=== PATIENT | female | born 1935 | race Caucasian/White ===

== ENCOUNTER 2016-12-01 12:43 | Outpatient (CLI) ==
--- NOTE | 2016-12-01 13:42 | US ---
EXAM: ULTRASOUND CAROTID DUPLEX, BILATERAL HISTORY: Dizziness FINDINGS: Baumann-scale ultrasound, color Doppler and spectral analysis was performed. Velocities are in meters per second. By baumann scale and color Doppler imaging, there were regions of heterogeneous plaque formation identi fied within the carotid bulbs and internal carotid arteries. These regions of plaque appeared to re main less than 50% vessel diameter. RIGHT: External carotid artery peak systolic velocity: 1.6 Common carotid artery peak systolic velocity/end diastolic velocity: 0.9/0.2 Internal carotid artery peak systolic velocity: 0.8 ICA/CCA peak systolic velocity ratio: 0.9 ICA end diastolic velocity: 0.1 LEFT: External carotid artery peak systolic velocity: 1.2 Common carotid artery peak systolic velocity/end diastolic velocity: 0.6/0.1 Internal carotid artery peak systolic velocity: 0.7 ICA/CCA peak systolic velocity ratio: 1.2 ICA end diastolic velocity: 0.1 The right and left vertebral arteries were antegrade. IMPRESSION: 1. By baumann scale and color Doppler imaging, there were regions of heterogeneous plaque formation id entified within the carotid bulbs and internal carotid arteries. These regions of plaque appeared t o remain less than 50% vessel diameter. 2. Internal carotid artery peak systolic velocities and ICA/CCA peak systolic velocity ratios indic ate no hemodynamically significant stenosis bilaterally. 3. Both vertebral arteries were antegrade.
== END 2016-12-01 12:44 | disposition home or self-care (01) ==
LOC: RAD 12:43
PROVIDERS: ATTEND Internal Medicine
DX: R42 Dizziness and giddiness (principal)

== ENCOUNTER 2017-09-27 16:03 | Inpatient (IN) | payer OTHER ==
[2017-09-27] MEDS ORDERED: NITROSTAT SL PRN (16:28)
[2017-09-27] MEDS ORDERED: ATROPINE SULFATE PFS IVP PRN (16:28)
[2017-09-27] MEDS ORDERED: VISTARIL INJ IM PRN (16:28)
[2017-09-27] MEDS ORDERED: TYLENOL PO PRN (16:28)
[2017-09-27] MEDS ORDERED: MORPHINE 4 MG/ML VIAL IVP PRN (16:28)
[2017-09-27] MEDS ORDERED: PHENERGAN WITH CODEINE 6.25/10 MG/5 ML PO PRN (16:35)
--- NOTE | 2017-09-27 17:02 | DI ---
EXAM: Chest two views HISTORY: Cough COMPARISON: 04/26/2016 TECHNIQUE: Two views of the chest were performed FINDINGS: No airspace consolidation. Minimal subsegmental atelectasis and/or scarring in the lingul a. Granulomatous calcification. There is no pleural effusion or pneumothorax. The heart is normal i n size. The mediastinal contour is normal, noting atherosclerosis. There are no acute abnormalities of the bones. IMPRESSION: No acute cardiopulmonary process.
[2017-09-27 17:10] VITALS: BMI 25.8
[2017-09-27] MEDS ORDERED: NORCO 5-325 PO PRN (17:34)
[2017-09-27] MEDS: DEXTROSE 5%-1/2NS IV SOLUTION 1,000 ML IV SCH (17:59)
[2017-09-27] MEDS: ROCEPHIN 1 GM in SODIUM CHLORIDE 50 ML IV SCH (18:04)
[2017-09-27] MEDS: SOLU-MEDROL 125 MG IVP SCH ×2 (18:04→20:46)
[2017-09-27] MEDS: ZITHROMAX PO SCH (18:20)
[2017-09-27] MEDS: XOPENEX 1.25 MG NEB SCH ×2 (18:22→23:26)
[2017-09-27] MEDS: XANAX PO PRN (20:46)
[2017-09-28] MEDS: XOPENEX 1.25 MG NEB SCH ×4 (04:59→23:08)
[2017-09-28] MEDS: DEXTROSE 5%-1/2NS IV SOLUTION 1,000 ML IV SCH ×2 (07:48→08:57)
[2017-09-28] MEDS ORDERED: ASPIRIN EC PO SCH (08:00)
[2017-09-28] MEDS: ROCEPHIN 1 GM in SODIUM CHLORIDE 50 ML IV SCH (08:58)
[2017-09-28] MEDS ORDERED: NON-FORMULARY MEDICATION (Losartan Potassium 50 MG) PO SCH (09:00)
[2017-09-28] MEDS: CELEXA PO SCH (09:00)
[2017-09-28] MEDS ORDERED: NON-FORMULARY MEDICATION (Lovastatin [Lovastatin] 40 MG) PO SCH (09:00)
[2017-09-28] MEDS: MEVACOR PO SCH (09:00)
[2017-09-28] MEDS ORDERED: NON-FORMULARY MEDICATION (Esomeprazole Magnesium [Nexium] 40 MG) PO SCH (09:00)
[2017-09-28] MEDS: PROTONIX PO SCH (09:00)
[2017-09-28] MEDS: COZAAR PO SCH (09:00)
[2017-09-28] MEDS: ASPIRIN EC PO SCH (09:01)
[2017-09-28] MEDS: ZITHROMAX PO SCH (09:01)
[2017-09-28] MEDS: BETAPACE PO SCH (09:01)
[2017-09-28] MEDS: SOLU-MEDROL 125 MG IVP SCH ×2 (09:45→21:14)
--- NOTE | 2017-09-28 10:08 | PCM.PROG ---
Attending Provider: ATTENDING PROVIDER: Dr. XENIA ZHAO This patient is seen with Emily Ferguson, Nurse Practitioner. DATE OF SERVICE: 09/28/17 SUBJECTIVE: This 82 year old WHITE/ F was hospitalized 09/27/17. The patient is lying in bed, alert. Cough slightly improved. She did have some confusion through the night. She had a recent fall one week ago, hit head and left hip. The left hip CT was normal however head was not scanned. She has been having confusion. REVIEW OF SYSTEMS: CONSTITUTIONAL: Weakness. No night sweats. No fever or chills. HEENT: Eyes: No visual changes. No eye pain. No eye discharge. ENT: No runny nose. No epistaxis. No sinus pain. No odynophagia. No congestion. RESPIRATORY: Cough. No congestion. No hemoptysis. No shortness of breath. CARDIOVASCULAR: No angina symptoms. No CHF symptoms. No atypical chest pain for CAD. No palpitations. No orthopnea.. GASTROINTESTINAL: No abdominal pain. No nausea or vomiting. No diarrhea or constipation. No hematemesis. No hematochezia. GENITOURINARY: No urgency. No frequency. No dysuria. No hematuria. No obstructive symptoms. No discharge. No pain. No significant abnormal bleeding. MUSCULOSKELETAL: No musculoskeletal pain; no joint swelling. NEUROLOGICAL: Awake, alert, oriented with bouts of confusion. No headache. No neck pain. No syncope. No seizures. No dizziness. PSYCHIATRIC: Not anxious. No depression. No suicidal thoughts. No homicidal thoughts. SKIN: No rash. No lesions. No wounds. ENDOCRINE: No unexplained weight loss. No weight gain. HEMATOLOGIC/LYMPHATIC: No anemia. No purpura. No petechiae. No prolonged or excessive bleeding. No palpable lymph nodes. PHYSICAL EXAMINATION: GENERAL: The patient is awake, alert and oriented, lying in bed in no distress. VITAL SIGNS: Temperature 97.8 F, Pulse 78, Respiratory Rate 16, BP 141/75, Pulse Ox 94% HEENT: Head normocephalic, atraumatic. Eyes: Extraocular muscles are intact. Pupils are equal, round and reactive to light and accommodation. Ears: No lesions. Nose appeared normal. Throat: No exudate or erythema. NECK: Supple. No JVD, no carotid bruit. No lymphadenopathy or thyromegaly. LUNGS: Diminished breath sounds bilaterally. Clear to auscultation. Percussion note normal. Chest symmetrical. HEART: S1, S2, no S3. No murmurs. No cyanosis or clubbing. No ascites. Pulses: Dorsalis pedis and posterior tibial pulses +1 to +2 both sides. ABDOMEN: Soft. Non-tender. Bowel sounds active. No CVA tenderness. No mass felt. EXTREMITIES: No edema. Full range of motion of all extremities, equal. NEUROLOGIC: No focal deficit. Cranial nerves II through XII are grossly intact. No headache, no double vision or headache. SKIN: Not dry. Intact. Turgor-normal. LYMPHATIC: No palpable lymph nodes/no lymphedema. MUSCULOSKELETAL: Normal joints with no swelling. Muscle tone is normal. LAB REVIEW: 09/28/17 04:24 09/28/17 04:24 09/28/17 04:24: Sodium 133 L, Potassium 4.5, Chloride 103, Carbon Dioxide 25, Anion Gap 9.5, BUN 21 H, Creatinine 1.00 D, Estimated GFR (MDRD) 53.00, BUN/ Creatinine Ratio 21.00, Glucose 179 H D, Calcium 9.4, Total Bilirubin 0.3, AST 21, ALT 15, Alkaline Phosphatase 46 L, Total Protein 6.9, Albumin 3.0 L, Globulin 3.9, Albumin/Globulin Ratio 0.77 09/28/17 04:24: WBC 10.07, RBC 3.85 L, Hgb 12.1, Hct 36.4 L, MCV 94.5, MCH 31.4 H, MCHC 33.2, RDW Coeff of Song 13.2, Plt Count 230, Immature Gran % (Auto) 1.6, Neut % (Auto) 85.5, Lymph % (Auto) 11.2, [place] % (Auto) 1.6, Eos % (Auto) 0.0, Baso % (Auto) 0.1, Immature Gran # (Auto) 0.2, Neut # 8.6 H, Lymph # 1.1, [place] # 0.2 L, Eos # 0.0, Baso # 0.0 09/27/17 18:20: Urine Color Yellow, Urine Clarity Clear, Urine pH 6.0, Ur Specific Summers 1.015, Urine Protein Negative, Urine Glucose (UA) Negative, Urine Ketones Trace, Urine Blood Negative, Urine Nitrite Negative, Urine Bilirubin Negative, Urine Urobilinogen 0.2, Ur Leukocyte Esterase Negative 09/27/17 17:45: Influenza A (Rapid) Negative by naat, Influenza B (Rapid) Negative by naat 09/27/17 17:00: Sodium 135 L, Potassium 4.8, Chloride 99, Carbon Dioxide 29, Anion Gap 11.8, BUN 28 H, Creatinine 1.73 H, Estimated GFR (MDRD) 28.00, BUN/ Creatinine Ratio 16.18, Glucose 119 H, Calcium 9.7, Total Bilirubin 0.4, AST 22 , ALT 15, Alkaline Phosphatase 49 L, Total Protein 6.8, Albumin 3.1 L, Globulin 3.7, Albumin/Globulin Ratio 0.84 09/27/17 17:00: WBC 11.87 H, RBC 3.96 L, Hgb 12.4, Hct 37.8, MCV 95.5, MCH 31.3 H, MCHC 32.8, RDW Coeff of Song 13.2, Plt Count 239, Immature Gran % (Auto) 0.9, Neut % (Auto) 63.2, Lymph % (Auto) 18.4, [place] % (Auto) 15.3 H, Eos % (Auto) 2.0 , Baso % (Auto) 0.2, Immature Gran # (Auto) 0.1, Neut # 7.5 H, Lymph # 2.2, [place] # 1.8, Eos # 0.2, Baso # 0.0 ASSESSMENT: 1. Acute pneumonitis 2. Generalized weakness 3. Status post fall 4. Intermittent confusion PLAN: 1. CT scan of brain, without 2. Decrease IV fluids to 50 mL/hr Plan and coordination of the patient's care discussed in the presence of Distance Learning Administrator and nurse. CONDITION: Stable SCRIBED BY: CANDIDA ARREOLA Sales And Service Consultant scribed while in presence of service performed by Dr. Zhao/Emily Ferguson APRN on 09/28/17 ([id number])
--- NOTE | 2017-09-28 12:33 | CT ---
EXAM: CT BRAIN HISTORY: Fall, hit head TECHNIQUE: CT brain without intravenous contrast. 5-mm axial sections with Reformations. COMPARISON: None FINDINGS: There is age-related generalized atrophy. There is moderate periventricular and deep white matter low attenuation which although nonspecific is suggestive of chronic microvascular ischemic change. Athe rosclerotic disease. Brain otherwise is unremarkable without distinct evidence of hemorrhage or large vessel distribution recent ischemic infarction. There is no suggestion of acute hydrocephalus or subdural fluid collecti on. No mass or mass effect. Cranium is intact. The visualized paranasal sinuses are clear. There is sclerosis and poor aeration of the left mastoid process possibly from previous bouts of inflammation/infection. No definite cur rent effusion. IMPRESSION: No acute injuries or intracranial process.2
[2017-09-28] MEDS: XANAX PO PRN (21:14)
[2017-09-29] MEDS: DEXTROSE 5%-1/2NS IV SOLUTION 1,000 ML IV SCH ×2 (02:19→06:19)
[2017-09-29] MEDS: XOPENEX 1.25 MG NEB SCH ×3 (04:03→23:47)
[2017-09-29] MEDS: PROTONIX PO SCH (05:43)
[2017-09-29] MEDS: BETAPACE PO SCH (08:55)
[2017-09-29] MEDS: COZAAR PO SCH (08:55)
[2017-09-29] MEDS: CELEXA PO SCH (08:55)
[2017-09-29] MEDS: ROCEPHIN 1 GM in SODIUM CHLORIDE 50 ML IV SCH (08:55)
[2017-09-29] MEDS: MEVACOR PO SCH (08:56)
[2017-09-29] MEDS: ASPIRIN EC PO SCH (08:56)
[2017-09-29] MEDS: ZITHROMAX PO SCH (08:56)
[2017-09-29] MEDS: PREDNISONE PO SCH ×2 (10:11→20:38)
--- NOTE | 2017-09-29 10:58 | PCM.PROG ---
Attending Provider: ATTENDING PROVIDER: Dr. XENIA ZHAO This patient is seen with Emily Ferguson, Nurse Practitioner. DATE OF SERVICE: 09/29/17 SUBJECTIVE: This 82 year old WHITE/ F was hospitalized 09/27/17. The patient is lying in bed, alert. She is feeling better today. She has been eating well. REVIEW OF SYSTEMS: CONSTITUTIONAL: Positive for weakness and fatigue. No night sweats. No fever or chills. HEENT: Eyes: No visual changes. No eye pain. No eye discharge. ENT: No runny nose. No epistaxis. No sinus pain. No odynophagia. No congestion. RESPIRATORY: No cough, no congestion. No hemoptysis. No shortness of breath. CARDIOVASCULAR: No angina symptoms. No CHF symptoms. No atypical chest pain for CAD. No palpitations. No orthopnea.. GASTROINTESTINAL: No abdominal pain. No nausea or vomiting. No diarrhea or constipation. No hematemesis. No hematochezia. GENITOURINARY: No urgency. No frequency. No dysuria. No hematuria. No obstructive symptoms. No discharge. No pain. No significant abnormal bleeding. MUSCULOSKELETAL: No musculoskeletal pain; no joint swelling. NEUROLOGICAL: Awake, alert, oriented to time, place and person. No headache. No neck pain. No syncope. No seizures. No dizziness. PSYCHIATRIC: Not anxious. No depression. No suicidal thoughts. No homicidal thoughts. SKIN: No rash. No lesions. No wounds. ENDOCRINE: No unexplained weight loss. No weight gain. HEMATOLOGIC/LYMPHATIC: No anemia. No purpura. No petechiae. No prolonged or excessive bleeding. No palpable lymph nodes. PHYSICAL EXAMINATION: GENERAL: The patient is awake, alert and oriented, lying in bed in no distress. VITAL SIGNS: Temperature 98.2 F, Pulse 66, Respiratory Rate 16, BP 141/71, Pulse Ox 96% HEENT: Head normocephalic, atraumatic. Eyes: Extraocular muscles are intact. Pupils are equal, round and reactive to light and accommodation. Ears: No lesions. Nose appeared normal. Throat: No exudate or erythema. NECK: Supple. No JVD, no carotid bruit. No lymphadenopathy or thyromegaly. LUNGS: Diminished breath sounds bilaterally. Clear to auscultation. Percussion note normal. Chest symmetrical. HEART: S1, S2, no S3. No murmurs. No cyanosis or clubbing. No ascites. Pulses: Dorsalis pedis and posterior tibial pulses +1 to +2 both sides. ABDOMEN: Soft. Non-tender. Bowel sounds active. No CVA tenderness. No mass felt. EXTREMITIES: No edema. Full range of motion of all extremities, equal. NEUROLOGIC: No focal deficit. Cranial nerves II through XII are grossly intact. No headache, no double vision or headache. SKIN: Not dry. Intact. Turgor-normal. LYMPHATIC: No palpable lymph nodes/no lymphedema. MUSCULOSKELETAL: Normal joints with no swelling. Muscle tone is normal. LAB REVIEW: 09/29/17 04:20 09/29/17 04:20 09/29/17 04:20: Sodium 137, Potassium 4.3, Chloride 106, Carbon Dioxide 24, Anion Gap 11.3, BUN 23 H, Creatinine 0.83, Estimated GFR (MDRD) 66.00, BUN/ Creatinine Ratio 27.71, Glucose 150 H, Calcium 9.2, Total Bilirubin < 0.3, AST 22, ALT 14, Alkaline Phosphatase 45 L, Total Protein 6.3, Albumin 2.8 L, Globulin 3.5, Albumin/Globulin Ratio 0.80 09/29/17 04:20: WBC 22.18 H D, RBC 3.67 L, Hgb 11.4 L, Hct 34.5 L, MCV 94.0, MCH 31.1 H, MCHC 33.0, RDW Coeff of Song 13.3, Plt Count 242, Immature Gran % ( Auto) 1.9, Neut % (Auto) 87.8, Lymph % (Auto) 6.4 L, [place] % (Auto) 3.7, Eos % ( Auto) 0.0, Baso % (Auto) 0.2, Immature Gran # (Auto) 0.4, Neut # 19.5 H, Lymph # 1.4, [place] # 0.8, Eos # 0.0, Baso # 0.0 ASSESSMENT: 1. Acute pneumonitis 2. Generalized weakness 3. Status post fall 4. Intermittent confusion 5. Dizziness PLAN: 1. D/C Solu-Medrol 2. Prednisone 20 mg b.i.d. 3. PT/OT evaluate 4. Stop IV fluids 5. Encourage the patient to drink lots of fluids Plan and coordination of the patient's care discussed in the presence of Restaurant Area Manager and nurse. CONDITION: Stable SCRIBED BY: CANDIDA ARREOLA Weights And Measures Inspector scribed while in presence of service performed by Dr. Zhao/Emily Ferguson APRN on 09/29/17 ([id number])
--- NOTE | 2017-09-29 11:29 | HP ---
DATE OF SERVICE: 09/27/17 REASON FOR HOSPITALIZATION/HISTORY OF PRESENT ILLNESS: Started with fever yesterday. Max 100.6. On Keflex and Prednisone x 8 days had fever last week. Fell on 09/16. Still coughing and very weak. PAST MEDICAL HISTORY: Dyslipidemia Anemia DJD spine Mild depression Forgetfulness Chronic kidney disease Right knee osteoarthritis PAST SURGICAL HISTORY: Hysterectomy Bilateral Bunionectomy REVIEW OF SYSTEMS: CONSTITUTIONAL: Fever, Fatigue. HEENT: Sinus drainage, no sore throat. RESPIRATORY: Cough, no congestion. CARDIOVASCULAR: No atypical chest pain for coronary artery disease. No angina , CHF symptoms, palpitations. Shortness of breath with exertion. GASTROINTESTINAL: No melena or abdominal pain. No GERD. GENITOURINARY: No hematuria, no prostatism, no polyuria. TOYS INSPECTOR: No blackout, no dizziness, no headache, no double vision. Gait unsteady. MUSCULOSKELETAL: Osteoarthritis pain, no joint swelling. ENDOCRINE: No weight loss, no weight gain. SKIN: Not dry, no rash. PSYCHIATRIC: Not anxious, no depression, no suicidal thoughts, no homicidal thoughts. SOCIAL HISTORY: Marital Status: . Alcohol Usage: No. Tobacco Usage:No. FAMILY HISTORY: Father Mother Brother 3 MEDICATIONS: Xanax 0.5mg PRN Aspirin 81mg daily Betapace 40mg daily Lovastatin 40mg Nexium 40mg daily Losartan 50mg daily [place] 5-3215mg twice a day Voltaren twice a day Celexa 30mg daily Topical estrogen Antibiotics Cough syrup ALLERGIES: Cipro Claritin Aricept PHYSICAL EXAMINATION: V/S: Pulse 76, blood pressure 110/54, temperature 97.9, pulse ox 96%. GENERAL APPEARANCE: Oriented times three. Pale, clammy and yellow sputum. HEENT: Normal. NECK: No JVP, no bruits. RESPIRATORY: Decreased breath sounds. CARDIOVASCULAR: S1, S2, no S3, no murmurs. No cyanosis, clubbing. No ascites. GI/ABDOMEN: Tenderness. Bowel sounds are active. EXTREMITIES: edema, pulses +1, equal. TOYS INSPECTOR: Deep tendon reflexes, sensory, motor and gait all normal. RECTAL: refused/PELVIC: Hysterectomy. ASSESSMENT: 1. Acute pneumonitis 2. Generalized weakness 3. Dehydration 4. Dyslipidemia 5. Anemia 6. DJD spine 7. Mild depression 8. Forgetfulness 9. Chronic kidney disease, 2 10.Right knee osteoarthritis PLAN: 1. Admit 2. Continue home medications 3. Routine Telemetry orders/ Skip cardiac markers 4. CBC /CMP daily 5. Chest x-ray 6. Urinalysis 7. Sputum culture 8. D5 1/2 normal saline at 75cc an hour 9. Solu-Medrol 100mg IV Q 12 hours 10.Rocephin 1 gram IV daily 11.Zithromax 500mg PO daily times 3 days 12.O2 PRN 13.Rapid Flu A&B 14.Xopenex NEBS Q 6 hours scheduled 15.Phenergan with codeine 1 tsp Q 6 hours PRN PO TIME SPENT: More than 70 minutes. MTDD
--- NOTE | 2017-09-29 15:20 | CM.DICTOOL ---
ADMISSION: 09/27/17 16:03 DISCHARGE: 09/29/17 DATE OF SERVICE: 09/29/17 FINAL DIAGNOSIS ACUTE BRONCHITIS GENERALIZED WEAKNESS S/P FALL AT HOME FORGETFULNESS DIZZINESS DEHYDRATION HYPERTENSION DYSLIPIDEMIA CHRONIC KIDNEY DISEASE ANEMIA GERD DJD SPINE OSTEOARTHRITIS, RIGHT KNEE ANXIETY/MILD DEPRESSION HYSTERECTOMY BUNIONECTOMY, BILATERAL FORMER SMOKER (NONE FOR OVER 20 YEARS) LAST VITALS Temp Pulse Resp BP Pulse Ox 97.9 F 68 16 154/71 H 98 09/29/17 10:00 09/29/17 10:00 09/29/17 10:00 09/29/17 10:00 09/29/17 10:00 ACTIVE HOME MEDICATIONS Acetaminophen/Hydrocodone Bitart ([place] 5-325) 1 tab PO BID PRN PRN Reason: pain Alprazolam (Xanax) 0.5 mg PO BEDTIME PRN PRN Reason: Anxiety Last Admin: 09/28/17 21:14 Dose: 0.5 mg Aspirin (Aspirin Ec) 81 mg PO DAILYWM [facility] Last Admin: 09/29/17 08:56 Dose: 81 mg Citalopram Hydrobromide (Celexa) 30 mg PO DAILY [facility] Last Admin: 09/29/17 08:55 Dose: 30 mg Esomeprazole Magnesium (Nexium) 40 mg PO DAILY Losartan Potassium (Cozaar) 50 mg PO DAILY [facility] Last Admin: 09/29/17 08:55 Dose: 50 mg Lovastatin (Mevacor) 40 mg PO DAILY [facility] Last Admin: 09/29/17 08:56 Dose: 40 mg Sotalol HCl (Betapace) 40 mg PO DAILY [facility] Last Admin: 09/29/17 08:55 Dose: 40 mg ALLERGIES ciprofloxacin [From Cipro] Adverse Reaction (Verified 09/28/17 07:10) Unknown donepezil [From Aricept] Adverse Reaction (Verified 09/28/17 07:10) Unknown loratadine [From Claritin] Adverse Reaction (Verified 09/28/17 07:10) Unknown NEW PRESCRIPTIONS: KEFLEX 500 MG, TAKE ONE CAPSULE BY MOUTH THREE TIMES DAILY FOR 5 DAYS PREDNISONE 10 MG, TAKE ONE TABLET BY MOUTH DAILY WITH FOOD FOR 5 DAYS SMOKING: FORMER SMOKER NONE FOR OVER 20 YEARS DISEASE SPECIFIC EDUCATION: BRONCHITIS WEAKNESS HOME MEDICTIONS NEW MEDICATIONS ADVERSE EFFECTS OF HALFWAY STEROID USE FOLLOW UP LAB REVIEW: 09/29/17 04:20 09/29/17 04:20 09/29/17 04:20: Sodium 137, Potassium 4.3, Chloride 106, Carbon Dioxide 24, Anion Gap 11.3, BUN 23 H, Creatinine 0.83, Estimated GFR (MDRD) 66.00, BUN/ Creatinine Ratio 27.71, Glucose 150 H, Calcium 9.2, Total Bilirubin < 0.3, AST 22, ALT 14, Alkaline Phosphatase 45 L, Total Protein 6.3, Albumin 2.8 L, Globulin 3.5, Albumin/Globulin Ratio 0.80 09/29/17 04:20: WBC 22.18 H D, RBC 3.67 L, Hgb 11.4 L, Hct 34.5 L, MCV 94.0, MCH 31.1 H, MCHC 33.0, RDW Coeff of Song 13.3, Plt Count 242, Immature Gran % ( Auto) 1.9, Neut % (Auto) 87.8, Lymph % (Auto) 6.4 L, [place] % (Auto) 3.7, Eos % ( Auto) 0.0, Baso % (Auto) 0.2, Immature Gran # (Auto) 0.4, Neut # 19.5 H, Lymph # 1.4, [place] # 0.8, Eos # 0.0, Baso # 0.0 PLAN: DISCHARGE HOME TODAY RETURN TO SEE DR. ZHAO ON 10/05/17 AT 2:15 P.M. RESUME YOUR HOME MEDICATIONS PER LIST PROVIDED BY THE NURSING STAFF NEW PRESCRIPTIONS KEFLEX 500 MG, TAKE ONE CAPSULE BY MOUTH THREE TIMES DAILY FOR 5 DAYS PREDNISONE 10 MG, TAKE ONE TABLET BY MOUTH DAILY WITH FOOD FOR 5 DAYS ACTIVITY GET PLENTY OF REST AT HOME. GRADUALLY INCREASE YOUR ACTIVITY LEVEL ACCORDING TO YOUR TOLERATION DIET HEALTHY HEART SUMMARY THE PATIENT IS ALERT AND ORIENTED X3. SHE OCCASIONALLY BECOMES CONFUSED BUT REORIENTS VERY EASILY. SHE CURRENTLY RESIDES AT HOME WITH HER SIGNIFICANT OTHER AND HAS BEEN INDEPENDENT WITH [employer]L'[employer]. SHE DESIRES TO RETURN THERE AT DISCHARGE. SHE HAS A ROLLING WALKER AND CANE AT HOME FOR USE IF NECESSARY. SHE DOES NOT HAVE HOME HEALTH OR HOMEMAKING SERVICES. HER SKIN TURGOR IS ENTIRELY INTACT AND WITHOUT DECUBITUS ULCERS. NUTRITIONAL AND HYDRATION STATUS ARE VERY GOOD. MS. LOPEZ IS AWARE AND AGREEABLE FOR TODAY 'S DISCHARGE PLANS. SHE IS AFEBRILE AND STABLE FOR DISCHARGE HOME TODAY. CURRENT CODE STATUS DO NOT RESUSCITATE XENIA ZHAO M.D.
[2017-09-29] MEDS: XANAX PO PRN (20:44)
[2017-09-30] MEDS: XOPENEX 1.25 MG NEB SCH (04:00)
[2017-09-30] MEDS: PROTONIX PO SCH (05:52)
[2017-09-30] MEDS: BETAPACE PO SCH (08:46)
[2017-09-30] MEDS: MEVACOR PO SCH (08:46)
[2017-09-30] MEDS: COZAAR PO SCH (08:47)
[2017-09-30] MEDS: ASPIRIN EC PO SCH (08:47)
[2017-09-30] MEDS: CELEXA PO SCH (08:47)
[2017-09-30] MEDS: ROCEPHIN 1 GM in SODIUM CHLORIDE 50 ML IV SCH (08:48)
[2017-09-30] MEDS: PREDNISONE PO SCH (08:49)
[2017-09-30 10:44] VITALS: BP 152/73; TEMP 97.2
--- NOTE | 2017-10-02 15:30 | PN ---
DATE OF SERVICE: 09/29/17 SUBJECTIVE: The patient was seen with the Nurse Practitioner. PHYSICAL EXAMINATION: HEENT: Head normocephalic, atraumatic. Eyes: Extraocular muscles are intact. Pupils are equal, round and reactive to light and accommodation. Ears: No lesions. Nose appeared normal. Throat: No exudate or erythema. NECK: Supple. No JVD, no carotid bruit. No lymphadenopathy or thyromegaly. LUNGS: Clear to auscultation. Percussion note normal. Chest symmetrical. HEART: S1, S2, no S3. No murmurs. No cyanosis or clubbing. No ascites. Pulses: Dorsalis pedis and posterior tibial pulses +1 to +2 both sides. ABDOMEN: Soft. Nontender. Bowel sounds active. No CVA tenderness. No mass felt. EXTREMITIES: No edema. Full range of motion of all extremities, equal. NEUROLOGIC: No focal deficit. Cranial nerves II through XII are grossly intact. No headache, no double vision or headache. Mental status has improved. SKIN: Not dry. Intact. Turgor - normal. Hydration status has improved. LYMPHATIC: No palpable lymph nodes/no lymphedema. MUSCULOSKELETAL: Normal joints with no swelling. Muscle tone is normal. PLAN: 1. The patient will definitely discharged home tomorrow. CONDITION: Stable . TIME SPENT: More than 30 minutes. Plan and coordination of the patient's care discussed in the presence of nurse. JOHNATHAN
--- NOTE | 2017-10-03 09:40 | PN ---
DATE OF SERVICE: 09/30/17 SUBJECTIVE: 82 year old white female hospitalized with pneumonitis and bronchitis and generalized weakness. The patient's condition has improved remarkably. She is feeling a lot better. REVIEW OF SYSTEMS: CONSTITUTIONAL: No night sweats. No fatigue, malaise, lethargy. No fever or chills. HEENT: Eyes: No visual changes. No eye pain. No eye discharge. ENT: No runny nose. No epistaxis. No sinus pain. No sore throat. No odynophagia. No congestion. RESPIRATORY: No cough, no congestion. No hemoptysis. No shortness of breath. CARDIOVASCULAR: No angina symptoms. No CHF symptoms. No atypical chest pain for CAD. No palpitations. No orthopnea. GASTROINTESTINAL: No abdominal pain. No nausea or vomiting. No diarrhea or constipation. No hematemesis. No hematochezia. GENITOURINARY: No urgency. No frequency. No dysuria. No hematuria. No obstructive symptoms. No discharge. No pain. No significant abnormal bleeding. MUSCULOSKELETAL: No musculoskeletal pain; no joint swelling. NEUROLOGICAL: No headache. No neck pain. No syncope. No seizures. No dizziness. PSYCHIATRIC: Not anxious. No depression. No suicidal thoughts. No homicidal thoughts. SKIN: No rash. No lesions. No wounds. ENDOCRINE: No unexplained weight loss. No weight gain. HEMATOLOGIC/LYMPHATIC: No anemia. No purpura. No petechiae. No prolonged or excessive bleeding. No palpable lymph nodes. PHYSICAL EXAMINATION: GENERAL: The patient is oriented to time, place and person. VITAL SIGNS: Temperature 96.9, pulse 60, respiratory rate 20, blood pressure 170/80 and pulse ox 97%. HEENT: Head normocephalic, atraumatic. Eyes: Extraocular muscles are intact. Pupils are equal, round and reactive to light and accommodation. Ears: No lesions. Nose appeared normal. Throat: No exudate or erythema. NECK: Supple. No JVD, no carotid bruit. No lymphadenopathy or thyromegaly. LUNGS: Decreased breath sounds but clear to auscultation. Percussion note normal. Chest symmetrical. HEART: S1, S2, no S3. No murmurs. No cyanosis or clubbing. No ascites. Pulses: Dorsalis pedis and posterior tibial pulses +1 to +2 both sides. ABDOMEN: Soft. Nontender. Bowel sounds active. No CVA tenderness. No mass felt. EXTREMITIES: No edema. Full range of motion of all extremities, equal. NEUROLOGIC: No focal deficit. Cranial nerves II through XII are grossly intact. No headache, no double vision or headache. SKIN: Not dry. Intact. Turgor - normal. LYMPHATIC: No palpable lymph nodes/no lymphedema. MUSCULOSKELETAL: Normal joints with no swelling. Muscle tone is normal. ASSESSMENT: 1. Pneumonitis/bronchitis, resolved PLAN: 1. Discharge home on Keflex and steroids. CONDITION: Stable TIME SPENT: More than 30 minutes. Plan and coordination of the patient's care discussed in the presence of nurse. JOHNATHAN
--- NOTE | 2017-10-04 11:43 | DS ---
DATE OF SERVICE: 09/30/17 FINAL DIAGNOSIS: 1. ACUTE BRONCHITIS 2. PNEUMONITIS 3. GENERALIZED WEAKNESS 4. STATUS POST FALL AT HOME 5. FORGETFULNESS 6. DIZZINESS 7. DEHYDRATION 8. HYPERTENSION 9. DYSLIPIDEMIA 10. CHRONIC KIDNEY DISEASE 11. ANEMIA 12. 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 OSTEOARTHRITIS RIGHT KNEE 15. ANXIETY/MILD DEPRESSION 16. HYSTERECTOMY 17. BUNIONECTOMY, BILATERAL 18. FORMER SMOKER (NONE FOR OVER 20 YEARS) VITAL SIGNS AT DISCHARGE: Temperature 97.9, pulse 68, respiratory rate 16, blood pressure 154/74 and pulse oximetry 98. DISCHARGE INSTRUCTIONS: 1. Discharge home today. 2. Return to see Dr. Purvis on 10/05/17 at 2:15 p.m. 3. Resume your home medications as per list provided by the nursing staff. MEDICATIONS AT DISCHARGE: [place] 5/325 mg one tablet p.o. twice daily prn Xanax 0.5 mg p.o. at bedtime prn Aspirin 81 mg p.o. daily with meals Celexa 40 mg daily Nexium 40 mg daily Cozaar 50 mg daily Mevacor 40 mg daily Betapace 40 mg daily ALLERGIES: Cipro, Aricept and Claritin. NEW PRESCRIPTIONS: Keflex 500 mg one capsule by mouth three times daily for five days. Prednisone 10 mg one tablet by mouth daily with food for five days. DIET INSTRUCTIONS: Healthy heart. ACTIVITY: Get plenty of rest at home and gradually increase your activity level according to your toleration. SMOKING: Former smoker, none for over 20 years. 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 HOSPITAL COURSE: 82 year old white female was hospitalized with acute bronchitis, pneumonitis. The patient's condition has steadily improved. Hydration status has improved and her mental status also has become sharper. On physical examination the lungs with decreased breath sounds, but clear. At the time of discharge she was up and about. Her hemoglobin was 11.6, hematocrit 34, WBC 20,000, very likely from steroids. Creatinine was 0.7, BUN 21. CONDITION: At the time of discharge, stable. Cardiovascular status stable. The patient's CT scan of the head was also negative. TIME SPENT: More than 60 minutes. [facility]
--- NOTE | 2017-10-04 11:45 | PN ---
BILLING 09/27/17 LEVEL 5 09/28/17 INTERMEDIATE 09/29/17 INTERMEDIATE 09/30/17 DISCHARGE MTDD
== END 2017-09-30 11:00 | disposition home or self-care (01) | DRG 202 ==
LOC: MEDSURG B 16:03
PROVIDERS: ADMIT Internal Medicine; ATTEND Internal Medicine
DX: J20.9 Acute bronchitis, unspecified (principal); J18.9 Pneumonia, unspecified organism; R06.02 Shortness of breath; R50.9 Fever, unspecified; R53.1 Weakness; R41.3 Other amnesia; R42 Dizziness and giddiness; E86.0 Dehydration; I10 Essential (primary) hypertension; E78.5 Hyperlipidemia, unspecified; I12.9 Hypertensive chronic kidney disease with stage 1 through stage 4 chronic kidney disease, or unspecified chronic kidney disease; N18.9 Chronic kidney disease, unspecified; D64.9 Anemia, unspecified; K21.9 Gastro-esophageal reflux disease without esophagitis; M47.9 Spondylosis, unspecified; M17.11 Unilateral primary osteoarthritis, right knee; F41.8 Other specified anxiety disorders; Z87.891 Personal history of nicotine dependence; R41.0 Disorientation, unspecified; S09.90XA Unspecified injury of head, initial encounter; S79.912A Unspecified injury of left hip, initial encounter; W19.XXXA Unspecified fall, initial encounter; Y92.009 Unspecified place in unspecified non-institutional (private) residence as the place of occurrence of the external cause; Z79.899 Other long term (current) drug therapy
CPT/HCPCS: 36415; 80053; 81001; 85025; 87070; 87502; 93005; 93010; 94640

== ENCOUNTER 2021-12-23 14:32 | Inpatient (IN) ==
[2021-12-23] MEDS ORDERED: ATROPINE SULFATE PFS IVP PRN (14:42)
[2021-12-23] MEDS ORDERED: NITROSTAT SL PRN (14:42)
[2021-12-23 14:51] VITALS: BMI 22.8
[2021-12-23 15:08] LABS: BASOPHILS % (AUTO) 0.2 % (0.0-3.0); EOSINOPHILS # (AUTO) 0.1 K/ul (0.0-0.7); EOSINOPHILS % (AUTO) 0.5 % (0.0-7.0); HEMATOCRIT 36.1 % (37.0-47.0); HEMOGLOBIN 11.4 g/dl (12.0-16.0); IMMATURE GRANULOCYTE # (AUTO) 0.4 (0.0-1.0); IMMATURE GRANULOCYTE % (AUTO) 3.1 % (0.0-5.0); LYMPHOCYTES # (AUTO) 2.8 K/uL (0.60-3.4); LYMPHOCYTES % (AUTO) 21.7 (10.0-50.0); MEAN CORPUSCULAR HEMOGLOBIN 28.9 pg (27.0-31.0); MEAN CORPUSCULAR HGB CONC 31.6 (31.8-35.4); MEAN CORPUSCULAR VOLUME 91.6 fl (81.0-99.0); MONOCYTES # (AUTO) 1.1 K/uL (0.4-2.0); MONOCYTES % (AUTO) 8.7 (0-10); NEUTROPHILS # (AUTO) 8.6 K/ul (2.0-6.9); NEUTROPHILS % (AUTO) 65.8 % (42.2-75.2); PLATELET COUNT 304 10^3/uL (140-440); RDW COEFFICIENT OF VARIATION 15.5 % (11.6-14.8); RED BLOOD COUNT 3.94 10^6/ul (4.20-5.40); WHITE BLOOD COUNT 13.06 K/ul (4.6-10.2)
[2021-12-23 15:23] LABS: ALANINE AMINOTRANSFERASE 35.9 U/L (0-35); ALBUMIN 3.04 g/dL (3.5-5.0); ALKALINE PHOSPHATASE 70.3 U/L (53-141); ASPARTATE AMINO TRANSFERASE 45.9 U/L (14-36); BILIRUBIN,TOTAL 0.49 mg/dL (0.2-1.3); BLOOD UREA NITROGEN 26.9 mg/dL (7-17); CALCIUM 9.14 mg/dL (8.4-10.2); CARBON DIOXIDE 32.9 mmol/L (22-30.0); CHLORIDE 110.8 mmol/L (98-107); CREATINE KINASE 20.9 U/L (30-135); CREATININE 0.95 mg/dL (0.60-1.30); GLUCOSE 117.3 mg/dL (74-106); POTASSIUM 3.27 mmol/L (3.5-5.1); SODIUM 146.6 mmol/L (134.5-145); TOTAL PROTEIN 5.92 g/dL (6.3-8.2)
[2021-12-23 15:35] LABS: TROPONIN I 0.014 ng/ml (0.0000-0.120)
[2021-12-23] MEDS: DEXTROSE 5%-1/2NS IV SOLUTION 1,000 ML IV SCH (15:43)
--- NOTE | 2021-12-23 15:45 | DI ---
EXAM: Frontal view of the chest. HISTORY: Shortness of breath. COMPARISON: Chest radiograph 09/27/2017. FINDINGS: Calcific atherosclerosis of the aorta. Normal heart size. No acute consolidation. Scattered calcified granulomas. No visible effusion or pneumothorax. No acute osseous abnormality. IMPRESSION: 1. No acute abnormality. 2. Calcific atherosclerosis.
--- NOTE | 2021-12-23 15:49 | DI ---
EXAM: Three views of the right hand HISTORY: Right hand pain and swelling. COMPARISON: None FINDINGS: There is moderate to severe joint space narrowing and osteophyte formation of the DIP and P IP joints. There is minimal degenerative change of the first MCP joint and the radiocarpal joint. T here is questionable cortical irregularity of the scaphoid. Soft tissues are unremarkable. IMPRESSION: 1. Questionable cortical defect/subtle nondisplaced fracture of the scaphoid. If further evaluation is clinically indicated, CT versus MRI may be obtained. 2. Severe scattered degenerative disease of the DIP and PIP joints.
[2021-12-23] MEDS ORDERED: MIRALAX PO PRN (16:16)
[2021-12-23] MEDS ORDERED: ZOFRAN TAB PO PRN (16:16)
[2021-12-23] MEDS ORDERED: TYLENOL PO PRN (16:16)
[2021-12-23] MEDS ORDERED: LASIX TAB PO PRN (16:16)
[2021-12-23] MEDS ORDERED: LIDODERM PATCH 5% TP SCH (16:30)
[2021-12-23 16:50] LABS: BILIRUBIN,URINE Negative (NEGATIVE); CLARITY,URINE Slightly (CLEAR); COLOR,URINE Yellow (YELLOW); GLUCOSE, URINE (UA) Negative (NEGATIVE); KETONES,URINE Negative (NEGATIVE); LEUKOCYTE ESTERASE ,URINE Negative (NEGATIVE); NITRITE,URINE Positive (NEGATIVE); PROTEIN,URINE 2+ (NEGATIVE); URINE, BLOOD Trace-intact (NEGATIVE); UROBILINOGEN,URINE 0.2 (0.2)
[2021-12-23 16:55] LABS: BACTERIA,URINE 4+ (NOT PRESENT)
[2021-12-23] MEDS: K-DUR PO SCH (17:34)
[2021-12-23] MEDS: CATAPRES PO SCH (20:11)
[2021-12-23] MEDS: NORVASC PO SCH (20:11)
[2021-12-23] MEDS ORDERED: COREG PO SCH (21:00)
[2021-12-23 22:49] LABS: CREATINE KINASE < 20.0 U/L (30-135)
[2021-12-23 23:00] LABS: TROPONIN I < 0.012 ng/ml (0.0000-0.120)
[2021-12-24] MEDS: DEXTROSE 5%-1/2NS IV SOLUTION 1,000 ML IV SCH ×2 (02:31→22:24)
[2021-12-24 05:39] LABS: BASOPHILS % (AUTO) 0.2 % (0.0-3.0); EOSINOPHILS # (AUTO) 0.1 K/ul (0.0-0.7); EOSINOPHILS % (AUTO) 0.7 % (0.0-7.0); HEMATOCRIT 31.8 % (37.0-47.0); HEMOGLOBIN 10.1 g/dl (12.0-16.0); IMMATURE GRANULOCYTE # (AUTO) 0.3 (0.0-1.0); IMMATURE GRANULOCYTE % (AUTO) 2.6 % (0.0-5.0); LYMPHOCYTES # (AUTO) 2.3 K/uL (0.60-3.4); MEAN CORPUSCULAR HEMOGLOBIN 28.9 pg (27.0-31.0); MEAN CORPUSCULAR HGB CONC 31.8 (31.8-35.4); MEAN CORPUSCULAR VOLUME 91.1 fl (81.0-99.0); MONOCYTES # (AUTO) 0.9 K/uL (0.4-2.0); MONOCYTES % (AUTO) 7.4 (0-10); NEUTROPHILS # (AUTO) 7.9 K/ul (2.0-6.9); NEUTROPHILS % (AUTO) 69.1 % (42.2-75.2); PLATELET COUNT 267 10^3/uL (140-440); RDW COEFFICIENT OF VARIATION 15.6 % (11.6-14.8); RED BLOOD COUNT 3.49 10^6/ul (4.20-5.40); WHITE BLOOD COUNT 11.49 K/ul (4.6-10.2)
[2021-12-24 05:52] LABS: ALANINE AMINOTRANSFERASE 32.9 U/L (0-35); ALBUMIN 2.75 g/dL (3.5-5.0); ALKALINE PHOSPHATASE 59.2 U/L (53-141); ASPARTATE AMINO TRANSFERASE 44.7 U/L (14-36); BILIRUBIN,TOTAL 0.45 mg/dL (0.2-1.3); BLOOD UREA NITROGEN 19.1 mg/dL (7-17); CALCIUM 8.63 mg/dL (8.4-10.2); CARBON DIOXIDE 29.3 mmol/L (22-30.0); CHLORIDE 111.9 mmol/L (98-107); CREATININE 0.73 mg/dL (0.60-1.30); GLUCOSE 127.4 mg/dL (74-106); POTASSIUM 2.99 mmol/L (3.5-5.1); SODIUM 145.5 mmol/L (134.5-145); TOTAL PROTEIN 5.45 g/dL (6.3-8.2)
[2021-12-24] MEDS: CATAPRES PO SCH ×2 (08:46→20:17)
[2021-12-24] MEDS: COREG PO SCH ×2 (08:47→17:12)
[2021-12-24] MEDS: LIDODERM PATCH 5% TP SCH (08:47)
[2021-12-24] MEDS: MEGACE PO SCH (08:47)
[2021-12-24] MEDS: K-DUR PO SCH ×3 (08:47→17:12)
[2021-12-24] MEDS ORDERED: MEGESTROL PO SCH (09:00)
[2021-12-24] MEDS: D5%-1/2NS-KCL 20 MEQ/L IV SOL 1,000 ML IV SCH ×2 (09:25→22:26)
--- NOTE | 2021-12-24 10:17 | RS.BEDDYS ---
Subjective Date of Evaluation: 12/24/21 Date of Onset/Injury/Change in Status: 12/23/21 Diagnosis: dehydration; dysphagia Current Level of Function: This is an 86 year old female admitted for dehydration. She was on a modified diet and thickened liquids at the [facility]. She is reported [place] and wears bilateral hearing aids. She has advanced dementia and receives 1:1 assistance for feeding. EGG WORKER recommends evaluation of swallow function to determine safer and least restrictive diet and safe swallow/aspiration precautions recommendations for safety with PO intake. Current Diet: Regular diet; thin liquids Current Subjective/complaints:: The patient offered no complaints. She was upright in bed with at the bedside. He reported that she gets choked on food, and was receiving soft and ground food in the NH. He went on to state that she requires thickened liquids due to her risk of aspiration. He also reported the pt requires total assistance for PO intake and has decreased PO intake that has slowly declined. At this time, she requires medications crushed in applesauce or per , "will chew the meds." The requests that EGG WORKER work with the pt for safety with feeding. Medical History Comments:: Dementia, GERD, dehydration, swallow difficulty, hx of TIA, Hx of UTI, HTN, [place], anxiety. General Information - General Denture Type: Not Applicable Patient Orientation: Person Ability to Follow Directions: Fair (Inconsistent, but simple directions with f eeding were completed.) Is Patient able to Repeat Directions?: No Oral Expression Ability: Moderate Impairment (simple y/n responses, minimal to no spontaneous utterances; difficulty with response to 'wh' questions.) - Voice Voice Quality: Normal Voice Pitch: Normal Voice Loudness: Normal Oral-Facial Assessment - Face Facial Symmetry: Symmetrical - Dental/Labial Mouth Occlusion: Normal Teeth Characteristics: Intact/Normal Lips Comment: Rounded lips around spoon; did not follow directions in Oral motor exam - Lingual Protrusion: Weak Retraction: Weak Tip Lateralization: Discoordination Tip Elevation: Discoordination Comments: Pt did attempt lingual movements given a visual model and tactile stimulation to lingual surface. Pt's lingual surface presented with white coating and pt grimaced with oral care to tongue. - Palate and Pharynx Hard Palate Description: Abnormal Color (Potential thrush; grimaces with oral care to hard palate.) Gag Reflex Response: Normal - Comments/Additional Info. Comments:: Pt will need oral care routine frequently and prior to lowering HOB, due to poor awareness of residuals post PO intake. also reported she enjoys brushing and flossing her teeth. Food Presentation - Solids Food Presented: Pureed (Via tsp.) Behaviors/Comments: Pt closed labials around tip of spoon to clear food. The pt did not like puree presentation of oatmeal. She did masticate puree texture and swallowed. Delayed initiation of pharyngeal swallow 3-4 seconds. Decreased LE for airway protection. No overt s/s of aspiration. Moderate stasis on lingual surface; utilized liquid wash and 75% of stasis was cleared. Food Presented: Mechanical Soft (Presented by EGG WORKER. 1/2 tsp bite) Behaviors/Comments: Pt masticated bite of eggs with decreased rotary chew and minimal to no bolus formation. Eggs were not coordinated into bolus and were in bilateral sulcus post swallow. Moderate oral stasis observed. EGG WORKER presented liquid wash x2, which cleared residuals on lingual surface. Delayed cough 1x. Decreased LE for airway protection. Pt refused additional bites of food. - Liquids Liquid Presented: Thin (via straw) Behaviors/Comments: Pt required cues to pull liquids via straw. Pt consumed multiple consecutive sips. Delayed throat clears and coughing were observed with thin liquid sips. Liquid Presented: [place] (via spoon) Behaviors/Comments: Pt tolerated 1/2 and 3/4 tsp size spoonful of mildly thick- nectar liquids. Swallow initiation was inconsistent and delayed 3-6 seconds. LE was decreased for airway protection. Pt had no overt s/s of aspiration. - Recommendations: Dysphagia Evaluation Dietary Recommendations: Minced and Moist, Mildly Thick - [place] Comments:: Recommend total assistance with feeding; 1/2-3/4 size bites; liquids via spoon; pt alert for all PO intake; encourage pt to swallow; monitor for fatigue or decreased swallow responses and then stop PO intake. Dysphagia Swallow Precautions/Strategies: Sitting Upright (90 deg), Liquids from Spoon, Small Bites and Sips, Alternate Liquids/Solids Comments:: All aspiration precautions/safe swallow precautions; monitor for increased chest congestion; oral care routine after all PO intake including medication administration. - Summary Dysphagia Evaluation Summary: The patient presented with oral and pharyngeal phase deficits characterized by mastication process, oral awareness of bolus, bolus formation/coordination, delayed pharyngeal swallow initiation, decreased LE, and overt s/s of aspiration. At this time, EGG WORKER recommends pt have total assistance and supervision with PO intake, monitor alertness and awareness prior to PO intake, provide oral care routine frequently to reduce oral stasis and bacteria, and utilize all aspiration precautions. Pt is recommended for minced and moist diet texture with mildly thick-nectar liquid consistency. Pt may have ice chips, post oral care routine, for comfort. Pt has aspiration risks. Further Therapy Indicated?: Yes Comments: Pt may go into hospice care; however at this time, EGG WORKER will follow and treat pt for safety with PO intake. Functional Reporting G Codes: n/a Severity Impairment Rationale: n/a Short Term Goals Problem: Oral phase Goal #1: Pt tolerate minced and moist diet with min to no overt s/s of aspiration. Goal to be met by: 12/27/21 Problem: Pharyngeal phase Goal #2: Pt tolerate mildly thick-nectar liquids w/ min to no overt s/s of aspir. Goal to be met by: 12/27/21 Problem: Aspiration risks Goal #3: Family/staff utilize safe swallow/aspiration precautions 100% of PO intake. Goal to be met by: 12/27/21 Problem: Oral phase Goal #4: Oral care routine to reduce risk of aspiration on oral bacteria post PO. Goal to be met by: 12/27/21 Halfway Goals Goal #1: Pt tolerate safer and least restrictive diet w/ min to no overt s/s of asp. Goal to be met by: 12/27/21 Plan Duration of Treatment: 1 Week Frequency of Treatment: 1-2 X day, as tolerated Anticipated Discharge Destination: Pending Comments: At this time, due to pts cognition and weakness she is recommended for skilled SPT for safety with PO intake. - Treatment Code (1) Oropharyngeal dysphagia Code(s): R13.12 - Dysphagia, oropharyngeal phase
--- NOTE | 2021-12-24 10:32 | PCM.PROG ---
Attending Provider: ATTENDING PROVIDER: Dr. XENIA ZHAO DATE OF SERVICE: 12/24/21 SUBJECTIVE: This 86 year old /WHITE F was hospitalized 12/23/21 with dehydration, hypernatremia and hypokalemia. The patient has dementia which has been worse over last couple years. REVIEW OF SYSTEMS: CONSTITUTIONAL: No night sweats. No fatigue, malaise, lethargy. No fever or chills. HEENT: Eyes: No visual changes. No eye pain. No eye discharge. ENT: No runny nose. No epistaxis. No sinus pain. No odynophagia. No congestion. RESPIRATORY: No cough, no congestion. No hemoptysis. No shortness of breath. CARDIOVASCULAR: No angina symptoms. No CHF symptoms. No atypical chest pain for CAD. No palpitations. No orthopnea.. GASTROINTESTINAL: No abdominal pain. No nausea or vomiting. No diarrhea or constipation. No hematemesis. No hematochezia. GENITOURINARY: No urgency. No frequency. No dysuria. No hematuria. No obstructive symptoms. No discharge. No pain. No significant abnormal bleeding. MUSCULOSKELETAL: No musculoskeletal pain; no joint swelling. NEUROLOGICAL: Awake, alert, confusion. No headache. No neck pain. No syncope. No seizures. No dizziness. PSYCHIATRIC: Not anxious. No depression. No suicidal thoughts. No homicidal thoughts. SKIN: No rash. No lesions. No wounds. ENDOCRINE: No unexplained weight loss. No weight gain. HEMATOLOGIC/LYMPHATIC: No anemia. No purpura. No petechiae. No prolonged or excessive bleeding. No palpable lymph nodes. PHYSICAL EXAMINATION: GENERAL: The patient is awake, alert and oriented, lying in bed in no distress. VITAL SIGNS: Temperature 98.4 F, Pulse 69, Respiratory Rate 16, BP 143/74, Pulse Ox 98% HEENT: Head normocephalic, atraumatic. Eyes: Extraocular muscles are intact. Pupils are equal, round and reactive to light and accommodation. Ears: No lesions. Nose appeared normal. Throat: No exudate or erythema. NECK: Supple. No JVD, no carotid bruit. No lymphadenopathy or thyromegaly. LUNGS: Clear to auscultation. Percussion note normal. Chest symmetrical. HEART: S1, S2, no S3. No murmurs. No cyanosis or clubbing. No ascites. Pulses: Dorsalis pedis and posterior tibial pulses +1 to +2 both sides. ABDOMEN: Soft. Non-tender. Bowel sounds active. No CVA tenderness. No mass felt. EXTREMITIES: No edema. Full range of motion of all extremities, equal. NEUROLOGIC: No focal deficit. Cranial nerves II through XII are grossly intact. No headache, no double vision or headache. SKIN: Warm and dry. Intact. Turgor-normal. LYMPHATIC: No palpable lymph nodes/no lymphedema. MUSCULOSKELETAL: Normal joints with no swelling. Muscle tone is normal. LAB REVIEW: 12/24/21 04:49 12/24/21 04:49 12/24/21 04:49: Sodium 145.5 H, Potassium 2.99 L, Chloride 111.9 H, Carbon Dioxide 29.3, Anion Gap 7.29, BUN 19.1 H, Creatinine 0.73, Estimated GFR (MDRD) 75.00, BUN/Creatinine Ratio 26.16, Glucose 127.4 H, Calcium 8.63, Total Bilirubin 0.45, AST 44.7 H, ALT 32.9, Alkaline Phosphatase 59.2, Total Protein 5.45 L, Albumin 2.75 L, Globulin 2.70, Albumin/Globulin Ratio 1.01 12/24/21 04:49: WBC 11.49 H, RBC 3.49 L, Hgb 10.1 L, Hct 31.8 L, MCV 91.1, MCH 28.9, MCHC 31.8, RDW Coeff of Song 15.6 H, Plt Count 267, Immature Gran % (Auto) 2.6, Neut % (Auto) 69.1, Lymph % (Auto) 20.0, [place] % (Auto) 7.4, Eos % (Auto) 0.7, Baso % (Auto) 0.2, Neut # (Auto) 7.9 H, Lymph # (Auto) 2.3, [place] # (Auto) 0.9, Eos # (Auto) 0.1, Baso # (Auto) 0.0, Immature Gran # (Auto) 0.3 12/23/21 22:30: Total Creatine Kinase < 20.0 L, Troponin I < 0.012 12/23/21 16:40: Urine Color Yellow, Urine Clarity Slightly, Urine pH 6.0, Ur S pecific [place] 1.020, Urine Protein 2+ H, Urine Glucose (UA) Negative, Urine Ketones Negative, Urine Blood Trace-intact H, Urine Nitrite Positive H, Urine Bilirubin Negative, Urine Urobilinogen 0.2, Ur Leukocyte Esterase Negative, Urine Microscopic RBC 2-5, Urine Microscopic WBC 5-10, Ur Squamous Epith Cells 10-20, Urine Bacteria 4+ 12/23/21 15:00: WBC 13.06 H, RBC 3.94 L, Hgb 11.4 L, Hct 36.1 L, MCV 91.6, MCH 28.9, MCHC 31.6 L, RDW Coeff of Song 15.5 H, Plt Count 304, Immature Gran % (Auto) 3.1, Neut % (Auto) 65.8, Lymph % (Auto) 21.7, [place] % (Auto) 8.7, Eos % (Auto) 0.5, Baso % (Auto) 0.2, Neut # (Auto) 8.6 H, Lymph # (Auto) 2.8, [place] # (Auto) 1.1, Eos # (Auto) 0.1, Baso # (Auto) 0.0, Immature Gran # (Auto) 0.4 12/23/21 14:45: Sodium 146.6 H, Potassium 3.27 L, Chloride 110.8 H, Carbon Dioxide 32.9 H, Anion Gap 6.17, BUN 26.9 H, Creatinine 0.95, Estimated GFR (MDRD) 56.00, BUN/Creatinine Ratio 28.31, Glucose 117.3 H, Calcium 9.14, Total Bilirubin 0.49, AST 45.9 H, ALT 35.9 H, Alkaline Phosphatase 70.3, Total Protein 5.92 L, Albumin 3.04 L, Globulin 2.88, Albumin/Globulin Ratio 1.05 12/23/21 14:45: Total Creatine Kinase 20.9 L, Troponin I 0.014 ASSESSMENT: Please see below. 1. Dementia 2. Hypokalemia 3. Dehydration, resolved with kidney function improved. PLAN: 1. Potassium 2.9 almost 3 and being given Potassium supplements PO and IV 2. raised printer/POA for health is present in the room and patient as been referred to Hospice. He has agreed to that. The patient will be on Hospice once discharged from the hospital. Plan and coordination of the patient's care discussed in the presence of Conveyor Monitor and nurse. CONDITION: Stable PROGNOSIS: POOR SCRIBED BY: Luda OCONNOR scribed while in presence of service performed by Dr. XENIA ZHAO on 12/24/21 ([id number])
[2021-12-24 11:37] LABS: BORDETELLA PARAPERTUSSIS (PCR) NOT DETECTED (NOT DETECT); BORDETELLA PERTUSSIS (PCR) NOT DETECTED (NOT DETECT); CHLAMYDIA PNEUMONIAE (PCR) NOT DETECTED (NOT DETECT); CORONAVIRUS 229E (PCR) NOT DETECTED (NOT DETECT); CORONAVIRUS HKU1 (PCR) NOT DETECTED (NOT DETECT); CORONAVIRUS NL63 (PCR) NOT DETECTED (NOT DETECT); CORONAVIRUS OC43 (PCR) NOT DETECTED (NOT DETECT); HUMAN METAPNEUMOVIRUS (PCR) NOT DETECTED (NOT DETECT); HUMAN RHINOVIRUS/ENTEROV (PCR) NOT DETECTED (NOT DETECT); INFLUENZA B (PCR) NOT DETECTED (NOT DETECT); MYCOPLASMA PNEUMONIAE (PCR) NOT DETECTED (NOT DETECT); PARAINFLUENZA VIRUS 1 (PCR) NOT DETECTED (NOT DETECT); PARAINFLUENZA VIRUS 2 (PCR) NOT DETECTED (NOT DETECT); PARAINFLUENZA VIRUS 3 (PCR) NOT DETECTED (NOT DETECT); PARAINFLUENZA VIRUS 4 (PCR) NOT DETECTED (NOT DETECT); RESPIRATORY SYNCYTIAL V (PCR) NOT DETECTED (NOT DETECT); SARS_COV_2 (PCR) NOT DETECTED (NOT DETECT)
[2021-12-24 12:25] LABS: ADENOVIRUS (PCR) NOT DETECTED (NOT DETECT)
--- NOTE | 2021-12-24 12:45 | PN ---
DATE OF SERVICE: 12/23/21 SUBJECTIVE: The patient was seen and examined in the room. 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 The patient's condition has deteriorated and her dementia has worsened. She looks more or less dehydrated. REVIEW OF SYSTEMS: CONSTITUTIONAL: No night sweats. No fatigue, malaise, lethargy. No fever or chills. HEENT: Eyes: No visual changes. No eye pain. No eye discharge. ENT: No runny nose. No epistaxis. No sinus pain. No sore throat. No odynophagia. No congestion. RESPIRATORY: No cough, no congestion. No hemoptysis. No shortness of breath. CARDIOVASCULAR: No angina symptoms. No CHF symptoms. No atypical chest pain for CAD. No palpitations. No PND. No orthopnea. GASTROINTESTINAL: No abdominal pain. No nausea or vomiting. No diarrhea or constipation. No hematemesis. No hematochezia. GENITOURINARY: No urgency. No frequency. No dysuria. No hematuria. No obstructive symptoms. No discharge. No pain. No significant abnormal bleeding. MUSCULOSKELETAL: No musculoskeletal pain; no joint swelling. NEUROLOGICAL: No headache. No neck pain. No syncope. No seizures. No dizziness. PSYCHIATRIC: Not anxious. No depression. No suicidal thoughts. No homicidal thoughts. SKIN: No rash. No lesions. No wounds. ENDOCRINE: No unexplained weight loss. No weight gain. HEMATOLOGIC/LYMPHATIC: No anemia. No purpura. No petechiae. No prolonged or excessive bleeding. No palpable lymph nodes. PHYSICAL EXAMINATION: GENERAL: The patient was awake but confused. HEENT: Head normocephalic, atraumatic. Eyes: Extraocular muscles are intact. Pupils are equal, round and reactive to light and accommodation. Ears: No lesions. Nose appeared normal. Throat: No exudate or erythema. NECK: Supple. No JVD, no carotid bruit. No lymphadenopathy or thyromegaly. LUNGS: Clear to auscultation. Percussion note normal. Chest symmetrical. HEART: S1, S2, no S3. No murmurs. No cyanosis or clubbing. No ascites. Pulses: Dorsalis pedis and posterior tibial pulses +1 to +2 bilaterally. ABDOMEN: Soft. Nontender. Bowel sounds active. No CVA tenderness. No mass felt. EXTREMITIES: Trace edema. Full range of motion of all extremities, equal. NEUROLOGIC: No focal deficit. Cranial nerves II through XII are grossly intact. No headache. No double vision. SKIN: Not dry. Intact. Turgor - normal. LYMPHATIC: No palpable lymph nodes/no lymphedema. MUSCULOSKELETAL: Normal joints with no swelling. Muscle tone is normal. PLAN: 1. Condition discussed. She will given IV fluids with potassium supplement. PROGNOSIS: Poor she has endstage dementia where she doesn't even have any awareness of day or night just wants to walk. Also doesn't have any appetite pattern. Power of Rfid Systems Architect for Health/Crossband Layer, Paulino is agreeable for the patient's referral to Hospice. In fact he is the one that brought it up at the same time as I did. CONDITION: Stable. TIME SPENT: More than 30 minutes. Plan and coordination of the patient's care discussed in the presence of nurse. JOHNATHAN
--- NOTE | 2021-12-24 13:02 | HP ---
DATE OF SERVICE: 12/23/21 REASON FOR HOSPITALIZATION/HISTORY OF PRESENT ILLNESS: Weakness, lethargic. Labs today, sodium 148.9 and Potassium 3.1. Has been getting oral Potassium, difficulty swallowing. PAST MEDICAL HISTORY: GERD History of paroxysmal atrial fibrillation Failure to thrive Dependent leg edema Advanced dementia-multiple infarct Anxiety and depression Hypertension CKD stage 2-3 Dyslipidemia DJD C spine Neck pain Recurrent UTI Bilateral bunionectomy D&C Bilateral cataract extraction Total hysterectomy PAST SURGICAL HISTORY: Bilateral bunionectomy Bilateral cataract Total hysterectomy REVIEW OF SYSTEMS: CONSTITUTIONAL: No fever, Fatigue. HEENT: No sinus drainage, no sore throat. Dysphagia. RESPIRATORY: No cough, no congestion. CARDIOVASCULAR: No atypical chest pain for coronary artery disease. No angina, CHF symptoms, palpitations. Shortness of breath. GASTROINTESTINAL: No melena or abdominal pain. No GERD. Dysphagia. Loss of appetite. GENITOURINARY: No hematuria, no prostatism, no polyuria. LEVEL VIAL INSPECTOR: No blackout, no dizziness, no headache, no double vision. GAIT: Unable. MUSCULOSKELETAL: Osteoarthritis pain; neck and right hand, no joint swelling. ENDOCRINE: Weight loss, no weight gain. SKIN: Not dry, no rash. PSYCHIATRIC: Not anxious, no depression, no suicidal thoughts, no homicidal thoughts. SOCIAL HISTORY: Marital Status: Alcohol Usage: No. Tobacco Usage: No. 2 children. Retired. FAMILY HISTORY: Father Mother CAD Brother colon cancer-3 brothers MEDICATIONS: Coreg 6.25mg BID Lasix 20mg daily PRN Lidoderm patch 5% Q 24 hours Megace 400mg daily Miralax PRN Norvasc 5mg QHS Tylenol 325mg BID PRN Zofran 4mg Q 8 hours PRN Clonidine 0.1mg BID ALLERGIES: Cipro Macrobid PHYSICAL EXAMINATION: V/S: Blood pressure 132/70 and oxygen saturation 92%. GENERAL APPEARANCE: Oriented to person only. HEENT: Normal. NECK: No JVP, no bruits. RESPIRATORY: Decreased breath sounds. CARDIOVASCULAR: S1, S2, no S3, no murmur. No cyanosis, clubbing. No ascites. GI/ABDOMEN: No tenderness. Bowel sounds are active. EXTREMITIES: Trace bilateral lower extremity edema, pulses +1, equal. LEVEL VIAL INSPECTOR: Deep tendon reflexes, sensory, motor and gait all normal. RECTAL/PELVIC/PROSTATE: . ASSESSMENT: 1. Dehydration 2. Hypernatremia 3. Hypokalemia 4. GERD 5. History of paroxysmal atrial fibrillation 6. Failure to thrive 7. Dependent leg edema 8. Advanced dementia-multiple infarct 9. 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 Neck pain 15.Recurrent UTI 16.Bilateral bunionectomy 17.D&C 18.Bilateral cataract extraction 19.Total hysterectomy PLAN: 1. The patient will be tested at [facility] for COVID 2. Routine telemetry orders 3. CBC and CMP now and daily 4. D5 1/2 normal saline at 83cc an hour 5. U/A with culture 6. Chest x-ray 7. O2 at 1-2 liters 8. 2D echo 9. Potassium 20meq PO TID 10.Blood cultures times two 11.Regular diet-soft mechanical/honey thickened liquids 12.right hand x-ray 13.DNR 14.Respiratory panel by PCR 15.Daily weight 16.Continue home medications. TIME SPENT: More than 70 minutes. MTDD
--- NOTE | 2021-12-24 13:14 | RS.DYSPHTX ---
Dysphagia Treatment Note Date of Note: 12/24/21 Visit #: 1 Time of Treatment: 11:45 Subjective: Pt in bed with family at bedside. The patient reported, "my neck hurts." TAILMAN assisted with re-positioning and pt denied any new complaints. The patient verbalized 'yes' to consume lunch meal. TAILMAN educated family with PO intake during PO trials. Total treatment time: 30 - Short Term Goals Goal #1: Pt tolerate minced and moist diet with min to no overt s/s of aspiration. Activity/Accuracy: TAILMAN presented minced and moist texture. Pt masticated prolonged duration and then pocketed food to left sulcus. TAILMAN utilized liquid wash; stasis present. TAILMAN pulled food particles from oral cavity including; palate, bilateral sulcus, and lingual surface. TAILMAN presented puree diet texture. Pt tolerated four bites of puree texture. No overt s/s of aspiration. TAILMAN used laryngeal palpation intermittently to increase awareness to swallow response. Liquids/solids alternated. Goal #2: Pt tolerate mildly thick-nectar liquids w/ min to no overt s/s of aspir. Activity/Accuracy: Presented liquids via spoon. Pt tolerated sips without overt s/s of aspiration. Goal #3: Family/staff utilize safe swallow/aspiration precautions 100% of PO intake. Activity/Accuracy: During PO trials, TAILMAN provided family education and training with safe swallow and aspiration precautions. Positioning with head posture discussed. Bite size and swallow response discussed. Use of liquid wash educated. Monitoring pocketing of food and assisting with clearing stasis was discussed. Family verbalized understanding. TAILMAN reviewed s/s of aspiration. Goal #4: Oral care routine to reduce risk of aspiration on oral bacteria post PO. Activity/Accuracy: Post PO intake oral care routine completed. Pt had mild- moderate residue from PO intake. Continued education with family on importance of clean oral cavity prior to laying pt flat in bed. - Assisted Goals Goal #1: Pt tolerate safer and least restrictive diet w/ min to no overt s/s of asp. Assessment: At this time, pt is demonstrating inconsistent swallow responses with and without PO trials. She has risks for aspiration due to delay in swallow initiation. With PO trials, pt requires total assistance and cues to maintain attention and awareness to food in oral cavity. Pt tolerated puree diet texture best vs minced and moist diet texture. [place] liquids tolerated without overt s/s of aspiration. TAILMAN recommends family/staff to wait till pt is alert and requesting PO to increase natural swallow responses and reduce risks of aspiration. Pt continues to be a risk for aspiration. - Units Charged Swallowing Therapy: 2 - Plan Comments: Continued education with nursing staff on pt's difficulty with PO trials.
[2021-12-24] MEDS: NORVASC PO SCH (20:18)
[2021-12-25] MEDS: D5%-1/2NS-KCL 20 MEQ/L IV SOL 1,000 ML IV SCH ×3 (00:54→13:23)
[2021-12-25 05:20] LABS: BASOPHILS % (AUTO) 0.3 % (0.0-3.0); EOSINOPHILS # (AUTO) 0.2 K/ul (0.0-0.7); EOSINOPHILS % (AUTO) 1.6 % (0.0-7.0); HEMATOCRIT 32.5 % (37.0-47.0); HEMOGLOBIN 10.2 g/dl (12.0-16.0); IMMATURE GRANULOCYTE # (AUTO) 0.3 (0.0-1.0); IMMATURE GRANULOCYTE % (AUTO) 2.9 % (0.0-5.0); LYMPHOCYTES # (AUTO) 2.2 K/uL (0.60-3.4); LYMPHOCYTES % (AUTO) 19.4 (10.0-50.0); MEAN CORPUSCULAR HEMOGLOBIN 29.2 pg (27.0-31.0); MEAN CORPUSCULAR HGB CONC 31.4 (31.8-35.4); MEAN CORPUSCULAR VOLUME 93.1 fl (81.0-99.0); MONOCYTES # (AUTO) 0.9 K/uL (0.4-2.0); NEUTROPHILS # (AUTO) 7.8 K/ul (2.0-6.9); NEUTROPHILS % (AUTO) 67.8 % (42.2-75.2); PLATELET COUNT 248 10^3/uL (140-440); RDW COEFFICIENT OF VARIATION 15.9 % (11.6-14.8); RED BLOOD COUNT 3.49 10^6/ul (4.20-5.40); WHITE BLOOD COUNT 11.56 K/ul (4.6-10.2)
[2021-12-25 05:35] LABS: ALANINE AMINOTRANSFERASE 40.4 U/L (0-35); ALBUMIN 2.85 g/dL (3.5-5.0); ALKALINE PHOSPHATASE 60.9 U/L (53-141); BILIRUBIN,TOTAL 0.43 mg/dL (0.2-1.3); BLOOD UREA NITROGEN 13.8 mg/dL (7-17); CALCIUM 8.66 mg/dL (8.4-10.2); CARBON DIOXIDE 26.6 mmol/L (22-30.0); CHLORIDE 112.7 mmol/L (98-107); CREATININE 0.67 mg/dL (0.60-1.30); GLUCOSE 105.5 mg/dL (74-106); POTASSIUM 4.13 mmol/L (3.5-5.1); SODIUM 142.5 mmol/L (134.5-145); TOTAL PROTEIN 5.55 g/dL (6.3-8.2)
[2021-12-25] MEDS: MEGACE PO SCH (08:25)
[2021-12-25] MEDS: LIDODERM PATCH 5% TP SCH (08:25)
[2021-12-25] MEDS: CATAPRES PO SCH ×2 (08:26→21:33)
[2021-12-25] MEDS: COREG PO SCH ×2 (08:26→17:19)
[2021-12-25] MEDS: K-DUR PO SCH ×2 (09:59→11:55)
[2021-12-25] MEDS: NORVASC PO SCH (21:33)
[2021-12-26] MEDS: D5%-1/2NS-KCL 20 MEQ/L IV SOL 1,000 ML IV SCH ×2 (05:54→18:19)
[2021-12-26 06:31] LABS: BASOPHILS % (AUTO) 0.2 % (0.0-3.0); EOSINOPHILS # (AUTO) 0.2 K/ul (0.0-0.7); EOSINOPHILS % (AUTO) 1.2 % (0.0-7.0); HEMATOCRIT 32.7 % (37.0-47.0); HEMOGLOBIN 10.2 g/dl (12.0-16.0); IMMATURE GRANULOCYTE # (AUTO) 0.3 (0.0-1.0); IMMATURE GRANULOCYTE % (AUTO) 2.3 % (0.0-5.0); LYMPHOCYTES # (AUTO) 2.2 K/uL (0.60-3.4); LYMPHOCYTES % (AUTO) 17.3 (10.0-50.0); MEAN CORPUSCULAR HEMOGLOBIN 29.1 pg (27.0-31.0); MEAN CORPUSCULAR HGB CONC 31.2 (31.8-35.4); MEAN CORPUSCULAR VOLUME 93.2 fl (81.0-99.0); MONOCYTES # (AUTO) 0.9 K/uL (0.4-2.0); NEUTROPHILS # (AUTO) 9.3 K/ul (2.0-6.9); PLATELET COUNT 219 10^3/uL (140-440); RDW COEFFICIENT OF VARIATION 16.1 % (11.6-14.8); RED BLOOD COUNT 3.51 10^6/ul (4.20-5.40); WHITE BLOOD COUNT 12.93 K/ul (4.6-10.2)
[2021-12-26 06:45] LABS: BLOOD UREA NITROGEN 12.9 mg/dL (7-17); CALCIUM 8.73 mg/dL (8.4-10.2); CARBON DIOXIDE 25.6 mmol/L (22-30.0); CHLORIDE 110.3 mmol/L (98-107); CREATININE 0.71 mg/dL (0.60-1.30); GLUCOSE 96.5 mg/dL (74-106); POTASSIUM 4.25 mmol/L (3.5-5.1); SODIUM 138.1 mmol/L (134.5-145)
[2021-12-26] MEDS: CATAPRES PO SCH ×2 (08:11→20:16)
[2021-12-26] MEDS: COREG PO SCH ×2 (08:11→17:23)
[2021-12-26] MEDS: MEGACE PO SCH (08:11)
[2021-12-26] MEDS: LIDODERM PATCH 5% TP SCH (08:12)
[2021-12-26] MEDS: K-DUR PO SCH (08:20)
[2021-12-26] MEDS: NORVASC PO SCH (20:15)
[2021-12-27] MEDS: D5%-1/2NS-KCL 20 MEQ/L IV SOL 1,000 ML IV SCH (00:22)
[2021-12-27 05:15] VITALS: BP 140/70; TEMP 97
[2021-12-27 05:16] LABS: BASOPHILS % (AUTO) 0.3 % (0.0-3.0); EOSINOPHILS # (AUTO) 0.1 K/ul (0.0-0.7); EOSINOPHILS % (AUTO) 1.1 % (0.0-7.0); HEMATOCRIT 31.6 % (37.0-47.0); HEMOGLOBIN 10.5 g/dl (12.0-16.0); IMMATURE GRANULOCYTE # (AUTO) 0.2 (0.0-1.0); IMMATURE GRANULOCYTE % (AUTO) 2.2 % (0.0-5.0); LYMPHOCYTES # (AUTO) 2.2 K/uL (0.60-3.4); MEAN CORPUSCULAR HEMOGLOBIN 30.8 pg (27.0-31.0); MEAN CORPUSCULAR HGB CONC 33.2 (31.8-35.4); MEAN CORPUSCULAR VOLUME 92.7 fl (81.0-99.0); MONOCYTES # (AUTO) 0.8 K/uL (0.4-2.0); MONOCYTES % (AUTO) 7.7 (0-10); NEUTROPHILS # (AUTO) 7.5 K/ul (2.0-6.9); NEUTROPHILS % (AUTO) 68.7 % (42.2-75.2); PLATELET COUNT 198 10^3/uL (140-440); RDW COEFFICIENT OF VARIATION 15.9 % (11.6-14.8); RED BLOOD COUNT 3.41 10^6/ul (4.20-5.40); WHITE BLOOD COUNT 10.85 K/ul (4.6-10.2)
[2021-12-27 05:29] LABS: BLOOD UREA NITROGEN 11.8 mg/dL (7-17); CALCIUM 8.41 mg/dL (8.4-10.2); CARBON DIOXIDE 26.7 mmol/L (22-30.0); CHLORIDE 107.9 mmol/L (98-107); CREATININE 0.7 mg/dL (0.60-1.30); GLUCOSE 96.1 mg/dL (74-106); POTASSIUM 4.42 mmol/L (3.5-5.1); SODIUM 135.4 mmol/L (134.5-145)
[2021-12-27] MEDS: MEGACE PO SCH (08:44)
[2021-12-27] MEDS: LIDODERM PATCH 5% TP SCH (08:45)
[2021-12-27] MEDS: K-DUR PO SCH (08:45)
[2021-12-27] MEDS: COREG PO SCH (08:45)
[2021-12-27] MEDS: CATAPRES PO SCH (08:45)
--- NOTE | 2021-12-27 08:56 | PCM.PROG ---
Attending Provider: ATTENDING PROVIDER: Dr. XENIA ZHAO This patient is seen with Emily Ferguson, Nurse Practitioner. DATE OF SERVICE: 12/27/21 SUBJECTIVE: This 86 year old /WHITE F was hospitalized 12/23/21. She is resting comfortably. Still right hand swelling. Doesn't seem to be in any pain. Not eating much. Plan to go back to the custodial with Hospice, do believe there is a meeting with family today. Labs have improved. REVIEW OF SYSTEMS: CONSTITUTIONAL: No night sweats. No fatigue, malaise, lethargy. No fever or chills. Failure to thrive. HEENT: Eyes: No visual changes. No eye pain. No eye discharge. ENT: No runny nose. No epistaxis. No sinus pain. No odynophagia. No congestion. RESPIRATORY: No cough, no congestion. No hemoptysis. No shortness of breath. CARDIOVASCULAR: No angina symptoms. No CHF symptoms. No atypical chest pain for CAD. No palpitations. No orthopnea.. GASTROINTESTINAL: No abdominal pain. No nausea or vomiting. No diarrhea or constipation. No hematemesis. No hematochezia. GENITOURINARY: No urgency. No frequency. No dysuria. No hematuria. No obstructive symptoms. No discharge. No pain. No significant abnormal bleeding. MUSCULOSKELETAL: No musculoskeletal pain; no joint swelling. Right hand pain. NEUROLOGICAL: Awake, alert, confused. No headache. No neck pain. No syncope. No seizures. No dizziness. PSYCHIATRIC: Not anxious. No depression. No suicidal thoughts. No homicidal thoughts. SKIN: No rash. No lesions. No wounds. ENDOCRINE: No unexplained weight loss. No weight gain. HEMATOLOGIC/LYMPHATIC: No anemia. No purpura. No petechiae. No prolonged or excessive bleeding. No palpable lymph nodes. PHYSICAL EXAMINATION: GENERAL: The patient is awake, alert and not oriented, lying in bed in no distress. VITAL SIGNS: Temperature 97.0 F, Pulse 70, Respiratory Rate 18, BP 140/70, Pulse Ox 98% HEENT: Head normocephalic, atraumatic. Eyes: Extraocular muscles are intact. Pupils are equal, round and reactive to light and accommodation. Ears: No lesions. Nose appeared normal. Throat: No exudate or erythema. NECK: Supple. No JVD, no carotid bruit. No lymphadenopathy or thyromegaly. LUNGS: Diminished breath sounds. Clear to auscultation. Percussion note normal. Chest symmetrical. HEART: S1, S2, no S3. No murmurs. No cyanosis or clubbing. No ascites. Pulses: Dorsalis pedis and posterior tibial pulses +1 to +2 both sides. ABDOMEN: Soft. Non-tender. Bowel sounds active. No CVA tenderness. No mass felt. EXTREMITIES: No edema. Full range of motion of all extremities, equal. NEUROLOGIC: No focal deficit. Cranial nerves II through XII are grossly intact. No headache. No double vision. SKIN: Not dry. Intact. Turgor-normal. LYMPHATIC: No palpable lymph nodes/no lymphedema. MUSCULOSKELETAL: Normal joints with no swelling. Muscle tone is normal. LAB REVIEW: 12/27/21 04:48 12/27/21 04:48 12/27/21 04:48: Sodium 135.4, Potassium 4.42, Chloride 107.9 H, Carbon Dioxide 26.7, Anion Gap 5.22, BUN 11.8, Creatinine 0.70, Estimated GFR (MDRD) 79.00, BUN/Creatinine Ratio 16.85, Glucose 96.1, Calcium 8.41 12/27/21 04:48: WBC 10.85 H, RBC 3.41 L, Hgb 10.5 L, Hct 31.6 L, MCV 92.7, MCH 30.8, MCHC 33.2, RDW Coeff of Song 15.9 H, Plt Count 198, Immature Gran % (Auto) 2.2, Neut % (Auto) 68.7, Lymph % (Auto) 20.0, [place] % (Auto) 7.7, Eos % (Auto) 1.1, Baso % (Auto) 0.3, Neut # (Auto) 7.5 H, Lymph # (Auto) 2.2, [place] # (Auto) 0.8, Eos # (Auto) 0.1, Baso # (Auto) 0.0, Immature Gran # (Auto) 0.2 ASSESSMENT: Please see below. 1. Endstage dementia 2. Failure to thrive 3. Hypotension PLAN: 1. Will touch base with Hospice. 2. Plan possible discharge Plan and coordination of the patient's care discussed in the presence of Donkey Doctor and nurse. SCRIBED BY: DANIELA GARCIA, Family Consultant scribed while in presence of service performed by Dr. Zhao/Emily Ferguson APRN on 12/27/21 ([id number])
--- NOTE | 2021-12-27 13:08 | PN ---
DATE OF SERVICE: 12/25/21 SUBJECTIVE: 86 year old white female hospitalized with dehydration, worsening dementia and hypokalemia. The patient's hypokalemia has resolved. Dehydration seems to have resolved. The patient's creatinine is 0.9, BUN 19. The patient seems to be alert but confused. The patient's assistant corporate secretary and power of assistant district attorney for health/friend present. REVIEW OF SYSTEMS: CONSTITUTIONAL: No night sweats. No fatigue, malaise, lethargy. No fever or chills. HEENT: Eyes: No visual changes. No eye pain. No eye discharge. ENT: No runny nose. No epistaxis. No sinus pain. No sore throat. No odynophagia. No congestion. RESPIRATORY: No cough, no congestion. No hemoptysis. No shortness of breath. CARDIOVASCULAR: No angina symptoms. No CHF symptoms. No atypical chest pain for CAD. No palpitations. No PND. No orthopnea. GASTROINTESTINAL: No abdominal pain. No nausea or vomiting. No diarrhea or constipation. No hematemesis. No hematochezia. GENITOURINARY: No urgency. No frequency. No dysuria. No hematuria. No obstructive symptoms. No discharge. No pain. No significant abnormal bleeding. MUSCULOSKELETAL: No musculoskeletal pain; no joint swelling. NEUROLOGICAL: No headache. No neck pain. No syncope. No seizures. No dizziness. PSYCHIATRIC: Not anxious. No depression. No suicidal thoughts. No homicidal thoughts. SKIN: No rash. No lesions. No wounds. ENDOCRINE: No unexplained weight loss. No weight gain. HEMATOLOGIC/LYMPHATIC: No anemia. No purpura. No petechiae. No prolonged or excessive bleeding. No palpable lymph nodes. PHYSICAL EXAMINATION: VITAL SIGNS: Temperature 97, pulse 63, respiratory rate 18, blood pressure 150/60 and pulse ox 97%. HEENT: Head normocephalic, atraumatic. Eyes: Extraocular muscles are intact. Pupils are equal, round and reactive to light and accommodation. Ears: No lesions. Nose appeared normal. Throat: No exudate or erythema. NECK: Supple. No JVD, no carotid bruit. No lymphadenopathy or thyromegaly. LUNGS:Decreased breath sounds but clear to auscultation. Percussion note normal. Chest symmetrical. HEART: S1, S2, no S3. No murmurs. No cyanosis or clubbing. No ascites. Pulses: Dorsalis pedis and posterior tibial pulses +1 to +2 bilaterally. ABDOMEN: Soft. Nontender. Bowel sounds active. No CVA tenderness. No mass felt. EXTREMITIES: No edema. Full range of motion of all extremities, equal. NEUROLOGIC: No focal deficit. Cranial nerves II through XII are grossly intact. No headache. No double vision. SKIN: Not dry. Intact. Turgor - normal. LYMPHATIC: No palpable lymph nodes/no lymphedema. MUSCULOSKELETAL: Normal joints with no swelling. Muscle tone is normal. LABS: Hgb 10.2, hct 32, WBC 11,000 normal differential, creatinine 0.6, BUN 13, potassium 4.1. ASSESSMENT: 1. Dementia seems to be worsening to the family and assistant corporate secretary 2. Hypokalemia, resolved 3. Dehydration, resolved PLAN: 1. The patient has been referred to Hospice 2. The patient's IV fluids 50cc per hour 3. Decrease the Potassium supplements to one a day 4. The patient's U/A was abnormal but grew mixed growth. TIME SPENT: More than 30 minutes. Plan and coordination of the patient's care discussed in the presence of nurse. JOHNATHAN
--- NOTE | 2021-12-27 14:19 | PN ---
DATE OF SERVICE: 12/26/21 SUBJECTIVE: 86 year old white female hospitalized with dementia, dehydration, hypernatremia and hypokalemia. The patient's electrolyte imbalance has resolved. Potassium is 4. Dehydration has resolved. She looks a lot better than when she came in but again awake but confused. He couldn't answer any questions. She kept on looking at son and answer the questions, didn't know what to say. REVIEW OF SYSTEMS: CONSTITUTIONAL: No night sweats. No fatigue, malaise, lethargy. No fever or chills. HEENT: Eyes: No visual changes. No eye pain. No eye discharge. ENT: No runny nose. No epistaxis. No sinus pain. No sore throat. No odynophagia. No congestion. RESPIRATORY: No cough, no congestion. No hemoptysis. No shortness of breath. CARDIOVASCULAR: No angina symptoms. No CHF symptoms. No atypical chest pain for CAD. No palpitations. No PND. No orthopnea. GASTROINTESTINAL: No abdominal pain. No nausea or vomiting. No diarrhea or constipation. No hematemesis. No hematochezia. GENITOURINARY: No urgency. No frequency. No dysuria. No hematuria. No obstructive symptoms. No discharge. No pain. No significant abnormal bleeding. MUSCULOSKELETAL: No musculoskeletal pain; no joint swelling. NEUROLOGICAL: No headache. No neck pain. No syncope. No seizures. No dizziness. PSYCHIATRIC: Not anxious. No depression. No suicidal thoughts. No homicidal thoughts. SKIN: No rash. No lesions. No wounds. ENDOCRINE: No unexplained weight loss. No weight gain. HEMATOLOGIC/LYMPHATIC: No anemia. No purpura. No petechiae. No prolonged or excessive bleeding. No palpable lymph nodes. PHYSICAL EXAMINATION: VITAL SIGNS: Temperature 98, pulse 75, respiratory rate 16, blood pressure 150/80 and pulse ox 97% on room air. HEENT: Head normocephalic, atraumatic. Eyes: Extraocular muscles are intact. Pupils are equal, round and reactive to light and accommodation. Ears: No lesions. Nose appeared normal. Throat: No exudate or erythema. NECK: Supple. No JVD, no carotid bruit. No lymphadenopathy or thyromegaly. LUNGS: Decreased breath sounds but clear to auscultation. Percussion note normal. Chest symmetrical. HEART: S1, S2, no S3. No murmurs. No cyanosis or clubbing. No ascites. Pulses: Dorsalis pedis and posterior tibial pulses +1 to +2 bilaterally. ABDOMEN: Soft. Nontender. Bowel sounds active. No CVA tenderness. No mass felt. EXTREMITIES: No edema. Full range of motion of all extremities, equal. NEUROLOGIC: No focal deficit. Cranial nerves II through XII are grossly intact. No headache. No double vision. SKIN: Not dry. Intact. Turgor - normal. LYMPHATIC: No palpable lymph nodes/no lymphedema. MUSCULOSKELETAL: Normal joints with no swelling. Muscle tone is normal. LABS: hgb 10.2, hct 32, WBC 12,000 normal differential, creatinine 0.6, BUN 13, potassium 4.1 The patient's caretake, Power of Bore Miner Operator for Health is present in the room. ASSESSMENT: 1. Electrolyte imbalance with hypokalemia seems to have resolved 2. Dementia, persists. PLAN: 1. Discharge the patient home on Hospice. Diagnosis for Hospice is endstage Dementia which is worsening to the point where the patient's appetite has been declining. The awareness to eat food has gone with Dementia. The patient is not able to take a step, bed ridden. PROGNOSIS: Poor TIME SPENT: More than 30 minutes. Plan and coordination of the patient's care discussed in the presence of nurse. JOHNATHAN
--- NOTE | 2021-12-28 11:43 | PN ---
DATE OF SERVICE: 12/27/21 SUBJECTIVE: The patient was seen and examined with the Nurse Practitioner. The patient's condition is stable. Her hydration status has improved but her mental status is still the same. She is awake but disoriented. The patient likely to be discharged today in the afternoon on Hospice. TIME SPENT: More than 30 minutes. Plan and coordination of the patient's care discussed in the presence of nurse. JOHNATHAN
--- NOTE | 2022-01-03 12:51 | DS ---
DATE OF SERVICE: 12/27/21 FINAL DIAGNOSIS: 1. Dehydration 2. Renal azotemia 3. Failure to thrive 4. Endstage dementia DISCHARGE INSTRUCTIONS: Discharge back to [facility]. Continue medications as listed per nursing reconciliation. The patient takes her medications crushed. The patient requires good oral care after medications and meals. Dr. Purvis/Emily Ferguson APRN to follow on care home rounds. [facility] to initiate care once she is back at [facility], they have been contacted. CODE STATUS: DO NOT RESUSCITATE. MEDICATIONS AT DISCHARGE: Miralax 17gram PO daily PRN Zofran 4mg PO Q 8 hours PRN Lidoderm 1 patch topical Q 24 hours Lasix 20mg PO QDAC PRN Coreg 6.25mg PO BID Megace 400mg PO daily Clonidine 0.1mg PO BID Norvasc 5mg PO BEDTIME Tylenol 325mg PO BID PRN DIET INSTRUCTIONS: [place] thick liquids and puree diet. ACTIVITY: Bedrest, elevate lower extremities and right arm turn every two hours and PRN to prevent bed sores. Fall precautions. HOSPITAL COURSE: 86 year old white female who is a newer patient to us. She has been at [facility] for about 10 days. She was discharged from [facility] to there. She has severe endstage dementia. We have been following her labs for the past couple days. Renal function has been worsening, sodium has been steadily increasing at 147. She is not eating or drinking much. She is coughing with eating. She has some swelling of the right hand which has been present since admission to [facility]. She was admitted and placed on normal saline IV at 75cc an hour. We continued her home medications and did an x-ray or her right hand due to the swelling which did find a scaphoid fracture. The previous x-ray at [facility] had been negative. U/A was done which was abnormal which just showed mixed growth. She initially had sodium 147 with IV fluids this was down to normal at 135. BUN down to 11 was initially in the 30's on admission. Swallow dysphasia study was done by speech therapy which recommended that she had inconsistent swallow responses and risk of aspiration. She required total assistance with eating. Recommended to purred diet with nectar thick liquids and will still be a risk for aspiration. After chest x-ray was normal she did not eat or drink much. She was not able to communicate. We do believe that she is at the very endstages of dementia. It has been decided by the family that she will be referred to [facility] and discharged back to [facility]. We are agreeable with this plan of care. She will discharged today in guarded condition and [facility] is going to followup with her at the care home today. TIME SPENT: More than 60 minutes. JOHNATHAN
== END 2021-12-27 13:25 | disposition hospice, inpatient (51) | DRG 641 ==
LOC: MEDSURG A 14:32
PROVIDERS: ADMIT Internal Medicine; ATTEND Internal Medicine